=== PATIENT | male | born 1950 ===

== ENCOUNTER 2019-02-07 14:02 | Outpatient (CLI) | payer OTHER ==
--- NOTE | 2019-02-08 15:54 | CT ---
CT CALCIUM SCORIN02/08/19 COMPARISON: None. HISTORY: Hyperlipidemia. High cholesterol. TECHNIQUE: Multiple contiguous axial images were obtained in a CT of the heart without contrast. FINDINGS: The tomographic images show no pulmonary nodules. Calcifications are seen in the aorta. No hilar or m ediastinal lymphadenopathy are appreciated. Degenerative changes are seen in the spine. The visualize d subdiaphragmatic structures are unremarkable. The patient's total Agatston calcium score is 59. This is seen in the left main coronary artery and l eft circumflex coronary artery. IMPRESSION: Mild risk of atherosclerotic disease based on the calcium score. Mild coronary atherosclerosis is pre sent and there is likely a mild or minimal coronary stenosis. A mild risk of having coronary artery d isease exists. POS: C
== END 2019-02-07 14:03 | disposition home or self-care (01) ==
LOC: BICCT 14:02
PROVIDERS: ATTEND Family Medicine
DX: Z00.00 Encounter for general adult medical examination without abnormal findings (principal); E78.5 Hyperlipidemia, unspecified; I25.10 Atherosclerotic heart disease of native coronary artery without angina pectoris
CPT/HCPCS: 75571